=== PATIENT | male | born 1940 | race Caucasian/White ===

== ENCOUNTER 2018-06-14 10:26 | Emergency (ER) | payer OTHER, MEDICARE ==
[~2018-06-14] VITALS: Ht 180.3 cm; Wt 101.8 kg
[2018-06-14 10:29] VITALS: Ht 180.3 cm; Wt 101.8 kg
[2018-06-14] MEDS ORDERED: LISINOPRIL10 MG PO (10:34)
[2018-06-14] MEDS ORDERED: PEPCID AC20 MG PO (10:35)
[2018-06-14] MEDS ORDERED: NORVASC10 MG PO (10:35)
[2018-06-14] MEDS ORDERED: PRAVACHOL40 MG PO (10:36)
[2018-06-14] MEDS ORDERED: MIRALAX17 GM PO (10:36)
[2018-06-14] MEDS ORDERED: FOSINOPRIL SODI20 MG PO (10:36)
[2018-06-14 11:12] LABS: BASOPHILS 0.2 % (0-2); EOSINOPHILS 5.3 % (0-7); HEMATOCRIT 40.2 % (42.0-54.0); HEMOGLOBIN 13.4 g/dL (13.5-17.5); IMMATURE GRANULOCYTES 0.2 % (0-5); LYMPHOCYTES 23.3 % (15-50); MCH 28.8 pg (26.0-34.0); MCHC 33.3 g/dL (31.0-37.0); MCV 86.5 fL (80.0-100.0); MEAN PLATELET VOLUME 9.6 fL (7.4-10.4); MONOCYTES 5.3 % (2-11); NEUTROPHILS 65.7 % (40-80); PLATELET COUNT 122 10x3/uL (130-400); RBC 4.65 10x6/uL (4.20-6.10); RDW 13.9 % (11.5-14.5); WBC 5.6 10x3/uL (4.8-10.8)
[2018-06-14 11:29] LABS: ALBUMIN 3.4 g/dL (3.4-5.0); ANION GAP 13.9 mmol/L (8-16); BILIRUBIN - TOTAL 0.92 mg/dL (0.2-1.3); CARBON DIOXIDE 25.2 mmol/L (21.0-32.0); CREATININE - SERUM 1.9 mg/dL (0.6-1.3); POTASSIUM - SERUM 4.1 mmol/L (3.5-5.1); PROTEIN - SERUM 6.9 g/dL (6.4-8.2)
[2018-06-14] MEDS ORDERED: CATAPRES0.1 MG PO ×2 (12:45→12:50)
[2018-06-14 13:01] VITALS: BP 133/69
== END 2018-06-14 13:02 | disposition home or self-care (01) ==
LOC: D.ER 10:26
PROVIDERS: Emergency Medicine
DX: I10 Essential (primary) hypertension (principal); R42 Dizziness and giddiness; R53.83 Other fatigue